=== PATIENT | female | born 1945 | race Caucasian/White ===

== ENCOUNTER 2023-03-13 20:10 | Inpatient (IN) | payer OTHER ==
[~2023-03-13] VITALS: Ht 167.6 cm; Wt 83.5 kg
[~2023-03-13 20:10] MED LIST: BUPR-48 PO; HYDR-4273 PO; LEVO175T2 PO; MAGN250T10 PO; PROP80CA58 PO; ZOLP5TAB2 PO
[2023-03-13] MEDS ORDERED: fentaNYL CITRATE/PF 100 MCG/2 ML AMP IVP ONE ×2 (20:15→21:45)
[2023-03-13] MEDS ORDERED: NS 1000 ML IV.SOLN IV ONE (20:15)
[2023-03-13 20:34] VITALS: BP_SYST 111; PULSE 69; RESP 22; TEMP 98.1; O2SAT 98
[2023-03-13 21:09] LABS: BASOPHILS # (AUTO) 0.1 K/uL (0.0-0.2); BASOPHILS % (AUTO) 0.7 % (0.0-2.0); EOSINOPHILS # (AUTO) 0.2 K/uL (0.0-0.4); EOSINOPHILS % (AUTO) 2.9 % (0.0-4.0); HEMATOCRIT 27.6 % (36-48); HEMOGLOBIN 8.7 g/dL (12.0-16.0); LYMPHOCYTES % (AUTO) 23.6 % (20.5-51.5); MEAN CORPUSCULAR HEMOGLOBIN 25 pg (27-31); MEAN CORPUSCULAR HGB CONC 31 % (32-36); MEAN CORPUSCULAR VOLUME 78 fL (79.0-98.0); MONOCYTES % (AUTO) 11.6 % (1.7-9.3); NEUTROPHILS # (AUTO) 5.2 K/uL (1.8-7.7); NEUTROPHILS % (AUTO) 61.2 % (40.0-70.0); PLATELET COUNT (AUTO) 287 K/uL (130-430); RED BLOOD CELL COUNT(AUTO) 3.53 MIL/uL (4.2-6.2); RED CELL DISTRIBUTION WIDTH 15.2 % (9.0-15.0); WHITE BLOOD COUNT (AUTO) 8.4 K/uL (4.8-10.8)
[2023-03-13 21:21] LABS: BILIRUBIN,URINE NEGATIVE (NEGATIVE); BLOOD, URINE NEGATIVE (NEGATIVE); CLARITY/URINE CLEAR (CLEAR); COLOR,URINE YELLOW (YELLOW); GLUCOSE,URINE NEGATIVE (NEGATIVE); KETONES,URINE NEGATIVE (NEGATIVE); LEUKOCYTE ESTERASE ,URINE NEGATIVE (NEGATIVE); NITRITE, URINE NEGATIVE (NEGATIVE); PROTEIN URINE NEGATIVE (NEGATIVE); UROBILINOGEN,URINE 0.2 (0.2-1.0)
[2023-03-13 21:22] LABS: INR 1.1 (0.8-1.2)
[2023-03-13 21:24] LABS: ALANINE AMINOTRANSFERASE 19 U/L (12-78); ANION GAP 6 (5-15); ASPARTATE AMINOTRANSFERASE 15 U/L (10-37); CALCIUM 7.4 mg/dL (8.4-11.0); CARBON DIOXIDE 26 mmol/L (23-29); CHLORIDE 105 mmol/L (98-107); CREATININE 1.01 mg/dL (0.55-1.30); GLUCOSE 66 mg/dL (74-106); POTASSIUM 3.9 mmol/L (3.5-5.1); SODIUM SERUM 137 mmol/L (136-145); TOTAL BILIRUBIN 0.2 mg/dL (0.0-1.0); TOTAL PROTEIN, SERUM 5.8 g/dL (6.4-8.3); UREA NITROGEN, BLOOD 19 mg/dL (8-21)
[2023-03-13] MEDS ORDERED: D5NS 500 ML IV ONE (23:00)
[2023-03-13] MEDS ORDERED: HYDROmorphone 1 MG/ML INJ. CARTRIDGE IVP ONE (23:15)
[2023-03-14] MEDS ORDERED: QUET100T34 PO (00:21)
[2023-03-14] MEDS ORDERED: FLUO20CA42 PO (00:21)
[2023-03-14] MEDS ORDERED: PROP80CA58 PO (00:21)
[2023-03-14] MEDS ORDERED: VIS10 PO (00:21)
[2023-03-14] MEDS ORDERED: LEVO75TA7 PO ×2 (00:21→07:30)
[2023-03-14] MEDS ORDERED: GABA-534 PO (00:21)
[2023-03-14] MEDS ORDERED: MORPHINE 4 MG INJ. 4 MG/ML VIAL IVP ONE (02:00)
[2023-03-14] MEDS ORDERED: NACL 0.9% 1,000 ML IV ONE (03:15)
[2023-03-14] MEDS ORDERED: HYDROcodone/ACETAMIN 5-325 MG TAB (NORCO/ VICODIN) PO PRN (05:15)
[2023-03-14] MEDS ORDERED: ONDANSETRON HCL 4 MG/2 ML VIAL IVP PRN (05:15)
[2023-03-14] MEDS ORDERED: ACETAMINOPHEN 325 MG TABLET PO PRN ×2 (05:15→06:30)
[2023-03-14] MEDS ORDERED: NALOXONE HCL 0.4 MG/ML AMP (NARCAN) IVP PRN ×3 (05:15)
[2023-03-14] MEDS: NORMAL SALINE 5 ML DISP.SYRIN IVF SCH ×3 (06:34→21:00)
[2023-03-14] MEDS: LORazepam 2 MG/ML VIAL IVP PRN (06:34)
[2023-03-14] MEDS: GABAPENTIN 400 MG CAPSULE PO SCH ×3 (08:39→21:00)
[2023-03-14] MEDS: LEVOTHYROXINE SODIUM 0.075 MG TABLET PO SCH (08:39)
[2023-03-14] MEDS: FLUoxetine HCL 20 MG CAPSULE (PROzac) PO SCH (08:49)
[2023-03-14] MEDS ORDERED: LEVOTHYROXINE SODIUM 75 MCG PO SCH (09:00)
[2023-03-14] MEDS ORDERED: HYDROcodone/ACETAMIN 5-325 MG TAB (NORCO/ VICODIN) ONE (18:26)
[2023-03-14] MEDS: ZOLPIDEM TARTRATE 5 MG TABLET PO SCH (20:56)
[2023-03-14] MEDS: QUEtiapine FUMARATE 100 MG TABLET PO SCH (21:00)
[2023-03-14] MEDS: PROPRANOLOL HCL 80 MG (INDERAL LA 80MG) PO SCH (21:00)
[2023-03-14 21:52] VITALS: BP_SYST 111; PULSE 66; RESP 18; TEMP 99
[2023-03-14] MEDS: HYDROcodone/ACETAMIN 10-325 MG TAB PO PRN (21:57)
[2023-03-15] VITALS (11 sets, daily range): BP systolic 112–163; PULSE 64–79; RESP 16–20; TEMP 97.2–98.9; O2SAT 94–99
[2023-03-15] MEDS: MORPHINE 2 MG/ML INJ. SYRINGE IVP PRN ×2 (02:00→16:34)
[2023-03-15] MEDS: D5/0.45 NS 1,000 ML IV SCH ×3 (02:02→19:45)
[2023-03-15] MEDS: LORazepam 2 MG/ML VIAL IVP PRN ×2 (04:42→20:24)
[2023-03-15] MEDS: LEVOTHYROXINE SODIUM 0.075 MG TABLET PO SCH (06:08)
[2023-03-15] MEDS: NORMAL SALINE 5 ML DISP.SYRIN IVF SCH ×3 (06:14→21:35)
[2023-03-15 07:33] LABS: HEMATOCRIT 26.8 % (36-48); HEMOGLOBIN 8.4 g/dL (12.0-16.0); MEAN CORPUSCULAR HEMOGLOBIN 24 pg (27-31); MEAN CORPUSCULAR HGB CONC 32 % (32-36); MEAN CORPUSCULAR VOLUME 77 fL (79.0-98.0); PLATELET COUNT (AUTO) 256 K/uL (130-430); RED BLOOD CELL COUNT(AUTO) 3.49 MIL/uL (4.2-6.2); RED CELL DISTRIBUTION WIDTH 15.3 % (9.0-15.0); WHITE BLOOD COUNT (AUTO) 10.3 K/uL (4.8-10.8)
[2023-03-15 07:47] LABS: ANION GAP 7 (5-15); CALCIUM 7.8 mg/dL (8.4-11.0); CARBON DIOXIDE 26 mmol/L (23-29); CHLORIDE 103 mmol/L (98-107); CREATININE 0.65 mg/dL (0.55-1.30); GLUCOSE 154 mg/dL (74-106); POTASSIUM 3.9 mmol/L (3.5-5.1); SODIUM SERUM 136 mmol/L (136-145); UREA NITROGEN, BLOOD 8 mg/dL (8-21)
[2023-03-15] MEDS: FLUoxetine HCL 20 MG CAPSULE (PROzac) PO SCH (07:58)
[2023-03-15] MEDS: GABAPENTIN 400 MG CAPSULE PO SCH ×3 (07:58→20:48)
[2023-03-15] MEDS: buPROPion HCL 150 MG XL TAB PO SCH (07:59)
[2023-03-15] MEDS ORDERED: TRANEXAMIC ACID 1,000 MG/10 ML VIAL ONE (08:10)
[2023-03-15] MEDS ORDERED: SUCCINYLCHOLINE CHLORIDE 20 MG/ML(QUELICIN) ONE (08:10)
[2023-03-15] MEDS ORDERED: ROCURONIUM BROMIDE 10 MG/ML (ZEMURON) ONE (08:10)
[2023-03-15] MEDS ORDERED: PROPOFOL 200MG/ 20ML VIAL (DIPRIVAN) IV ONE (08:10)
[2023-03-15] MEDS ORDERED: SEVOFLURANE 15 MIN GAS INH ONE (08:10)
[2023-03-15] MEDS ORDERED: WATER FOR IRRIGATION,STERILE 1,000 ML IRRIG.SOLN IR ONE (08:10)
[2023-03-15] MEDS ORDERED: NS 1000 ML IV.SOLN IV ONE (08:10)
[2023-03-15] MEDS ORDERED: NS IRRIG SOLN 1000 ML IR ONE (08:10)
[2023-03-15] MEDS ORDERED: ONDANSETRON HCL 4 MG/2 ML VIAL ONE (08:10)
[2023-03-15] MEDS ORDERED: MIDAZOLAM HCL/PF 2 MG/2 ML SYRINGE ONE (08:10)
[2023-03-15] MEDS ORDERED: ePHEDrine sulfate 50 MG/ML VIAL ONE (08:10)
[2023-03-15] MEDS ORDERED: METOCLOPRAMIDE HCL 10 MG/10 ML UDC ONE (08:10)
[2023-03-15] MEDS ORDERED: HYDROmorphone 2 MG/ML VIAL ONE ×2 (08:10→08:23)
[2023-03-15] MEDS ORDERED: MIDAZOLAM HCL 2 MG/2 ML VIAL (VERSED) ONE (08:24)
[2023-03-15] MEDS ORDERED: CLINDAMYCIN PHOSPHATE IV ONE (09:12)
[2023-03-15] MEDS ORDERED: D5W IV ONE (09:12)
[2023-03-15] MEDS ORDERED: NALOXONE HCL 0.4 MG/ML AMP (NARCAN) IVP PRN (11:30)
[2023-03-15] MEDS ORDERED: ONDANSETRON HCL 4 MG/2 ML VIAL IVP PRN (12:00)
[2023-03-15] MEDS ORDERED: HYDROmorphone 1 MG/ML INJ. CARTRIDGE IVP PRN (12:00)
[2023-03-15] MEDS ORDERED: ACETAMINOPHEN I.V. 1000 MG 100 ML IV ONE ×2 (12:49→14:00)
[2023-03-15] MEDS ORDERED: hydrALAZINE HCL 20 MG/ML VIAL IVP ONE (13:30)
[2023-03-15] MEDS ORDERED: VANCOMYCIN HCL 1,000 MG in NS 250 ML IV ONE (15:00)
[2023-03-15] MEDS: CALCIUM 500 MG/TAB PO SCH (20:48)
[2023-03-15] MEDS: QUEtiapine FUMARATE 100 MG TABLET PO SCH (20:48)
[2023-03-15] MEDS: PROPRANOLOL HCL 80 MG (INDERAL LA 80MG) PO SCH (20:49)
[2023-03-15] MEDS: MAGNESIUM OXIDE 400 MG TABLET PO SCH (20:53)
[2023-03-15] MEDS: ZOLPIDEM TARTRATE 5 MG TABLET PO SCH (21:00)
[2023-03-15] MEDS ORDERED: CALCIUM CARBONATE 650 MG TABLET PO SCH (21:00)
[2023-03-16 00:46] VITALS: BP_SYST 122; PULSE 70; RESP 20; TEMP 98.1; O2SAT 100
[2023-03-16] MEDS: HYDROcodone/ACETAMIN 10-325 MG TAB PO PRN ×2 (02:49→17:59)
[2023-03-16 05:20] LABS: BASOPHILS % (AUTO) 0.1 % (0.0-2.0); EOSINOPHILS % (AUTO) 0.3 % (0.0-4.0); HEMATOCRIT 22.3 % (36-48); HEMOGLOBIN 7.1 g/dL (12.0-16.0); LYMPHOCYTES # (AUTO) 1.5 K/uL (1.0-5.5); LYMPHOCYTES % (AUTO) 12.1 % (20.5-51.5); MEAN CORPUSCULAR HEMOGLOBIN 24 pg (27-31); MEAN CORPUSCULAR HGB CONC 32 % (32-36); MEAN CORPUSCULAR VOLUME 77 fL (79.0-98.0); MONOCYTES # (AUTO) 1.9 K/uL (0.0-1.0); MONOCYTES % (AUTO) 15.7 % (1.7-9.3); NEUTROPHILS # (AUTO) 8.8 K/uL (1.8-7.7); NEUTROPHILS % (AUTO) 71.8 % (40.0-70.0); PLATELET COUNT (AUTO) 257 K/uL (130-430); RED BLOOD CELL COUNT(AUTO) 2.91 MIL/uL (4.2-6.2); RED CELL DISTRIBUTION WIDTH 15.6 % (9.0-15.0); WHITE BLOOD COUNT (AUTO) 12.3 K/uL (4.8-10.8)
[2023-03-16 05:22] LABS: ALANINE AMINOTRANSFERASE 15 U/L (12-78); ALBUMIN 2.6 g/dL (3.4-4.8); ANION GAP 7 (5-15); ASPARTATE AMINOTRANSFERASE 17 U/L (10-37); CALCIUM 7.5 mg/dL (8.4-11.0); CARBON DIOXIDE 27 mmol/L (23-29); CHLORIDE 101 mmol/L (98-107); GLUCOSE 152 mg/dL (74-106); POTASSIUM 3.8 mmol/L (3.5-5.1); SODIUM SERUM 135 mmol/L (136-145); TOTAL BILIRUBIN 0.6 mg/dL (0.0-1.0); TOTAL PROTEIN, SERUM 5.5 g/dL (6.4-8.3); UREA NITROGEN, BLOOD 9 mg/dL (8-21)
[2023-03-16] MEDS: NORMAL SALINE 5 ML DISP.SYRIN IVF SCH ×3 (06:13→21:17)
[2023-03-16] MEDS: LEVOTHYROXINE SODIUM 0.075 MG TABLET PO SCH (06:13)
[2023-03-16] MEDS: D5/0.45 NS 1,000 ML IV SCH ×2 (06:14→16:06)
[2023-03-16] MEDS: MAGNESIUM OXIDE 400 MG TABLET PO SCH ×2 (08:46→21:16)
[2023-03-16] MEDS: MORPHINE 2 MG/ML INJ. SYRINGE IVP PRN ×2 (08:47→16:01)
[2023-03-16] MEDS: ENOXAPARIN SODIUM 40 MG/0.4 ML SYRINGE SUBCUT SCH (08:52)
[2023-03-16] MEDS: buPROPion HCL 150 MG XL TAB PO SCH (08:52)
[2023-03-16] MEDS: GABAPENTIN 400 MG CAPSULE PO SCH ×3 (08:52→21:16)
[2023-03-16] MEDS: FLUoxetine HCL 20 MG CAPSULE (PROzac) PO SCH (08:53)
[2023-03-16] MEDS: CHOLECALCIFEROL (VITAMIN D3) 5,000 UNIT TABLET PO SCH (08:53)
[2023-03-16] MEDS: CALCIUM 500 MG/TAB PO SCH ×2 (08:53→21:16)
[2023-03-16 11:30] VITALS: BP_SYST 137; PULSE 71; RESP 19; TEMP 98.8; O2SAT 100
[2023-03-16 15:30] VITALS: BP_SYST 122; PULSE 72; RESP 18; TEMP 98.8; O2SAT 97
[2023-03-16 15:53] VITALS: BP_SYST 122; PULSE 74; RESP 18; TEMP 99; O2SAT 96
[2023-03-16 18:15] VITALS: BP_SYST 144; PULSE 78; RESP 18; TEMP 99.9; O2SAT 97
[2023-03-16 20:00] VITALS: BP_SYST 128; PULSE 67; RESP 18; TEMP 97.7; O2SAT 96; O2SAT 97
[2023-03-16] MEDS: ZOLPIDEM TARTRATE 5 MG TABLET PO SCH (21:00)
[2023-03-16] MEDS: QUEtiapine FUMARATE 100 MG TABLET PO SCH (21:16)
[2023-03-16] MEDS: PROPRANOLOL HCL 80 MG (INDERAL LA 80MG) PO SCH (21:16)
[2023-03-17 01:14] VITALS: BP_SYST 112; PULSE 64; RESP 18; TEMP 97.7; O2SAT 99
[2023-03-17] MEDS: MORPHINE 2 MG/ML INJ. SYRINGE IVP PRN ×3 (01:14→15:26)
[2023-03-17] MEDS: NORMAL SALINE 5 ML DISP.SYRIN IVF SCH ×2 (05:46→15:00)
[2023-03-17] MEDS: D5/0.45 NS 1,000 ML IV SCH ×2 (05:46→11:45)
[2023-03-17] MEDS: HYDROcodone/ACETAMIN 10-325 MG TAB PO PRN ×2 (05:46→08:52)
[2023-03-17] MEDS: LEVOTHYROXINE SODIUM 0.075 MG TABLET PO SCH (06:45)
[2023-03-17 08:00] VITALS: BP_SYST 137; PULSE 78; RESP 18; TEMP 98.3; O2SAT 99
[2023-03-17] MEDS: CALCIUM 500 MG/TAB PO SCH ×2 (08:51→09:00)
[2023-03-17] MEDS: GABAPENTIN 400 MG CAPSULE PO SCH ×3 (08:51→15:00)
[2023-03-17] MEDS: ENOXAPARIN SODIUM 40 MG/0.4 ML SYRINGE SUBCUT SCH (08:51)
[2023-03-17] MEDS: FLUoxetine HCL 20 MG CAPSULE (PROzac) PO SCH ×2 (08:51→09:00)
[2023-03-17] MEDS: buPROPion HCL 150 MG XL TAB PO SCH ×2 (08:51→09:00)
[2023-03-17] MEDS: CHOLECALCIFEROL (VITAMIN D3) 5,000 UNIT TABLET PO SCH ×2 (08:52→09:00)
[2023-03-17] MEDS: MAGNESIUM OXIDE 400 MG TABLET PO SCH ×2 (08:52→09:00)
[2023-03-17] MEDS: LORazepam 2 MG/ML VIAL IVP PRN (09:10)
[2023-03-17 11:30] VITALS: BP_SYST 118; PULSE 78; RESP 21; TEMP 98.8; O2SAT 94
[2023-03-17 12:00] VITALS: BP_SYST 118; PULSE 78; RESP 16; TEMP 98.8; O2SAT 94
[2023-03-17] MEDS ORDERED: BISACODYL 10 MG/SUPPOSITORY RC ONE (15:00)
[2023-03-17 15:32] VITALS: BP_SYST 118; PULSE 78; RESP 16; TEMP 98.8; O2SAT 94
[2023-03-17 17:14] VITALS: BP_SYST 137; PULSE 85; RESP 21; TEMP 99; O2SAT 95
== END 2023-03-17 19:35 | DRG 493 ==
LOC: SED 20:10 → SMU 23:57
PROVIDERS: ADMIT Specialist; ATTEND Specialist
PROC: 2W3QX1Z Immobilization of Right Lower Leg using Splint (ICD-10-PCS; 2023-03-13)
PROC: 0QSG06Z Reposition Right Tibia with Intramedullary Internal Fixation Device, Open Approach (ICD-10-PCS; principal; 2023-03-15 08:22)
PROC: 30233N1 Transfusion of Nonautologous Red Blood Cells into Peripheral Vein, Percutaneous Approach (ICD-10-PCS; 2023-03-16)
DX: S82.241A Displaced spiral fracture of shaft of right tibia, initial encounter for closed fracture (principal); E44.1 Mild protein-calorie malnutrition; D64.9 Anemia, unspecified; E03.9 Hypothyroidism, unspecified; E83.51 Hypocalcemia; G47.00 Insomnia, unspecified; W18.39XA Other fall on same level, initial encounter; J44.9 Chronic obstructive pulmonary disease, unspecified; I10 Essential (primary) hypertension; F03.90 Unspecified dementia, unspecified severity, without behavioral disturbance, psychotic disturbance, mood disturbance, and anxiety; E88.09 Other disorders of plasma-protein metabolism, not elsewhere classified; Z88.6 Allergy status to analgesic agent; Z88.0 Allergy status to penicillin; Z79.899 Other long term (current) drug therapy; Y93.89 Activity, other specified; Y92.89 Other specified places as the place of occurrence of the external cause; Y99.8 Other external cause status; Z79.891 Long term (current) use of opiate analgesic; Z68.29 Body mass index [BMI] 29.0-29.9, adult
CPT/HCPCS: 36415; 70450-TC; 71045; 71260-TC; 72125-TC; 72128; 72131; 72170-TC; 73502; 73552; 73590-TC; 73700-TC; 76001; 76376; 80048; 80053; 81003; 83605; 84484; 85025; 85610-TC; 85730-TC; 86886; 86900; 86901; 86920; 87040; 87081; 87086; 93005; 93306; 97110-GP; 97112-GP; 97530-GP; 99291; 99292; C1713; C1769; J0131; J0330; J0360; J1170; J1650; J2060; J2270; J2405; J2704; J3010; J3370; J3465; J3490; J7030; J7050; J8597; P9021; Q9967

== ENCOUNTER 2023-09-05 13:59 | Emergency (ER) | payer OTHER ==
[~2023-09-05] VITALS: Ht 167.6 cm; Wt 64.4 kg
[~2023-09-05 13:59] MED LIST changes: +FLUO20CA42 PO; -LEVO175T2 PO; +LEVO75TA7 PO; +QUET100T34 PO; +VIS10 PO
[2023-09-05 14:23] VITALS: BP_SYST 148; PULSE 85; RESP 18; TEMP 98.3; O2SAT 98
[2023-09-05] MEDS: BACITRACIN 1 GM OINT TP ONE (15:59)
[2023-09-05] MEDS: DIPHTH,PERTUSS(ACELL),TET VAC 0.5 ML VIAL (Tdap) I.M. ONE (15:59)
[2023-09-05 16:48] VITALS: BP_SYST 148; PULSE 85; RESP 18; TEMP 98.3; O2SAT 98
== END 2023-09-05 16:49 | disposition home or self-care (01) ==
LOC: SED 13:59
DX: S50.01XA Contusion of right elbow, initial encounter (principal); J44.9 Chronic obstructive pulmonary disease, unspecified; Z88.0 Allergy status to penicillin; Z88.6 Allergy status to analgesic agent; Z79.899 Other long term (current) drug therapy; W01.0XXA Fall on same level from slipping, tripping and stumbling without subsequent striking against object, initial encounter; Y93.89 Activity, other specified; Y92.89 Other specified places as the place of occurrence of the external cause; Y99.8 Other external cause status
CPT/HCPCS: 90715; 99283

== ENCOUNTER 2023-10-15 20:16 | Emergency (ER) | payer OTHER ==
[~2023-10-15] VITALS: Ht 160 cm; Wt 77.1 kg
[2023-10-15 20:22] VITALS: BP_SYST 156; PULSE 80; RESP 20; TEMP 97.2; O2SAT 100
[2023-10-15] MEDS: LORazepam 2 MG/ML VIAL IVP ONE (21:18)
[2023-10-15 21:40] LABS: BASOPHILS # (AUTO) 0.1 K/uL (0.0-0.2); BASOPHILS % (AUTO) 0.8 % (0.0-2.0); EOSINOPHILS # (AUTO) 0.3 K/uL (0.0-0.4); EOSINOPHILS % (AUTO) 3.9 % (0.0-4.0); HEMATOCRIT 32.2 % (36-48); HEMOGLOBIN 10.6 g/dL (12.0-16.0); LYMPHOCYTES # (AUTO) 1.4 K/uL (1.0-5.5); MEAN CORPUSCULAR HEMOGLOBIN 27 pg (27-31); MEAN CORPUSCULAR HGB CONC 33 % (32-36); MEAN CORPUSCULAR VOLUME 83 fL (79.0-98.0); MONOCYTES # (AUTO) 0.5 K/uL (0.0-1.0); MONOCYTES % (AUTO) 7.5 % (1.7-9.3); NEUTROPHILS % (AUTO) 68.8 % (40.0-70.0); PLATELET COUNT (AUTO) 320 K/uL (130-430); RED BLOOD CELL COUNT(AUTO) 3.87 MIL/uL (4.2-6.2); WHITE BLOOD COUNT (AUTO) 7.2 K/uL (4.8-10.8)
[2023-10-15 21:52] LABS: BILIRUBIN,URINE NEGATIVE (NEGATIVE); CLARITY/URINE CLEAR (CLEAR); COLOR,URINE YELLOW (YELLOW); GLUCOSE,URINE NEGATIVE (NEGATIVE); KETONES,URINE TRACE (NEGATIVE); LEUKOCYTE ESTERASE ,URINE 2+ (NEGATIVE); NITRITE, URINE NEGATIVE (NEGATIVE); PROTEIN URINE TRACE (NEGATIVE); UROBILINOGEN,URINE 0.2 (0.2-1.0)
[2023-10-15 21:57] LABS: ANION GAP 10 (5-15); CALCIUM 8.8 mg/dL (8.4-11.0); CARBON DIOXIDE 26 mmol/L (23-29); CHLORIDE 107 mmol/L (98-107); CREATININE 0.89 mg/dL (0.55-1.30); GLUCOSE 114 mg/dL (74-106); POTASSIUM 3.9 mmol/L (3.5-5.1); SODIUM SERUM 143 mmol/L (136-145); UREA NITROGEN, BLOOD 25 mg/dL (8-21)
[2023-10-15 22:06] LABS: BLOOD, URINE TRACE (NEGATIVE)
[2023-10-15 22:20] LABS: BACTERIA,URINE FEW /HPF (None Seen)
[2023-10-15 23:52] VITALS: BP_SYST 152; PULSE 67; RESP 16; TEMP 98.3; O2SAT 95
== END 2023-10-15 23:45 | disposition home or self-care (01) ==
LOC: SED 20:16
DX: R45.1 Restlessness and agitation (principal); J44.9 Chronic obstructive pulmonary disease, unspecified; I10 Essential (primary) hypertension; Z88.0 Allergy status to penicillin; Z88.6 Allergy status to analgesic agent; Z79.899 Other long term (current) drug therapy
CPT/HCPCS: 99285; 96374; 71045; 80048; 81001; 83880; 85025; 87086; 84484; 36415; 93005; 81000; 81015; J2060